=== PATIENT | male | born 1975 | race Caucasian/White ===

== ENCOUNTER → 2023-10-01 11:15 | Outpatient (BNVA) | payer MEDICARE, OTHER, SELFPAY | PROVIDERS: Family Provider Nurse Practitioner; Visit Provider Psychiatry & Neurology Psychiatry | DX: Z79.899 Other long term (current) drug therapy (principal); F20.9 Schizophrenia, unspecified | CPT/HCPCS: 80053; 80061; 80178; 83036; 84443; 85025 ==

== ENCOUNTER → 2024-06-03 12:17 | Outpatient (BNVA) | payer MEDICARE, MEDICAID, SELFPAY | PROVIDERS: Family Provider Nurse Practitioner; Visit Provider Psychiatry & Neurology Psychiatry | DX: Z79.899 Other long term (current) drug therapy (principal); F25.0 Schizoaffective disorder, bipolar type | CPT/HCPCS: 80053; 80061; 80178; 83036; 84443; 85025 ==